=== PATIENT | female | born 1965 | race American Indian/Alaskan Native ===

== ENCOUNTER 2017-05-23 03:17 | Emergency (ER) | payer OTHER ==
[2017-05-23 05:59] VITALS: BP 138/83
--- NOTE | 2017-05-23 07:34 | Emergency Department Report ---
- General Chief Complaint: Skin/Abscess/Foreign Body Stated Complaint: RING STUCK ON FINGER Time Seen by Provider: 05/23/17 07:19 Source: patient Mode of arrival: Ambulatory Limitations: No Limitations - History of Present Illness Initial Comments: 52-year-old female comes in for having a ring stuck on her left ring finger. Patient reports that she was sent here from [place]. Patient reports that she was having hand swelling and the swelling went down but the ring finger due to trauma of trying to pull off her other readings of the same finger cause swelling and not able to remove the last ring. Patient denies any medical history currently takes no medication has multiple allergies to Vicodin hydrocodone oxycodone and tramadol. -: days(s) (1) Extremity Location: Left: Hand (ring finger) Place: other ([place] office) Treatments Prior to Arrival: cold therapy - Related Data Previous Rx's Medication Instructions Recorded Last Taken Type Ibuprofen [Motrin 600 MG tab] 600 mg PO Q8H PRN #30 tablet 05/23/17 Unknown Rx Allergies Allergy/AdvReac Type Severity Reaction Status Date / Time acetaminophen [From Vicodin] Allergy Hives Verified 05/23/17 04:23 hydrocodone Allergy Hives Verified 05/23/17 04:23 oxycodone Allergy Hives Verified 05/23/17 04:23 tramadol Allergy Hives Verified 05/23/17 04:23 ED Review of Systems ROS: Stated complaint: RING STUCK ON FINGER Other details as noted in HPI Constitutional: denies: chills, fever Eyes: denies: eye pain, eye discharge, vision change ENT: denies: ear pain, throat pain Respiratory: denies: cough, shortness of breath, wheezing Cardiovascular: denies: chest pain, palpitations Endocrine: no symptoms reported Gastrointestinal: denies: abdominal pain, nausea, diarrhea Genitourinary: denies: urgency, dysuria, discharge Musculoskeletal: denies: back pain, joint swelling, arthralgia Skin: other (left ring finger swollen and red). denies: rash, lesions Neurological: denies: headache, weakness, paresthesias Psychiatric: denies: anxiety, depression Hematological/Lymphatic: denies: easy bleeding, easy bruising ED Past Medical Hx - Past Medical History Previous Medical History?: No - Surgical History Past Surgical History?: Yes Additional Surgical History: c sec X4 - Social History Smoking Status: Current Every Day Smoker Substance Use Type: None - Medications Home Medications: Home Medications Medication Instructions Recorded Confirmed Last Taken Type Ibuprofen [Motrin 600 MG tab] 600 mg PO Q8H PRN #30 tablet 05/23/17 Unknown Rx ED Physical Exam - General Limitations: No Limitations General appearance: alert, in no apparent distress - Head Head exam: Present: atraumatic, normocephalic - Eye Eye exam: Present: normal appearance - ENT ENT exam: Present: mucous membranes moist - Neck Neck exam: Present: normal inspection - Respiratory Respiratory exam: Absent: respiratory distress - Cardiovascular Cardiovascular Exam: Present: regular rate. Absent: systolic murmur, diastolic murmur, rubs, gallop - Extremities Exam Extremities exam: Present: normal inspection - Expanded Upper Extremity Exam Left Elbow exam: Present: normal inspection, full ROM Forearm Wrist exam: Present: normal inspection, full ROM Hand Wrist exam: Present: full ROM, tenderness (left ring finger), swelling ( left ring finger). Absent: laceration, deformity Neuro motor exam: Present: wrist extension intact, thumb opposition intact, thumb IP flexion intact, thumb adduction intact, fingers 2-5 abduction intact Neurosensory exam: Present: 2-point discrimination, radial nerve intact, ulnar nerve intact, median nerve intact Vascular: Present: normal capillary refill - Back Exam Back exam: Present: normal inspection - Neurological Exam Neurological exam: Present: alert, oriented X3 - Psychiatric Psychiatric exam: Present: normal affect, normal mood - Skin Skin exam: Present: warm, dry, intact, normal color. Absent: rash ED Course Vital Signs 05/23/17 05:59 Temperature 98.1 F Pulse Rate 78 Respiratory 18 Rate Blood Pressure 138/83 [Left] O2 Sat by Pulse 100 Oximetry - Nerve Block Consent Obtained: verbal consent Time Out Performed: Yes Local Anesthetic Used: Lidocaine 1% Amount of anesthesia used: 2 Side: left Nerve Blocks: ulnar, other (ring finger left hand) Procedure Successful: Yes Complications: none Patient Tolerated Procedure: well Additional Comments: Nerve block to left ring finger to remove a ring ED Medical Decision Making - Medical Decision Making Patient's been evaluated by this provider fast track. Nerve block to remove ring from left ring finger. We also use a ring cutter from the OR. Removal was successful patient tolerated procedure well discussed patient to take ibuprofen ice to her finger. Patient verbalized understanding Critical care attestation.: If time is entered above; I have spent that time in minutes in the direct care of this critically ill patient, excluding procedure time. ED Disposition Clinical Impression: Swelling of finger, left Disposition: DC-01 TO HOME OR SELFCARE Is pt being admited?: No Does the pt Need Aspirin: No Condition: Stable Additional Instructions: Please continue to apply ice to your finger, ibuprofen for pain and swelling. Return back to the emergency room finger gets worse. Prescriptions: Ibuprofen [Motrin 600 MG tab] 600 mg PO Q8H PRN #30 tablet PRN Reason: Pain Referrals: MAGDIEL GUILLAUME MD [Primary Care Provider] - 3-5 Days Forms: Work/School Release Form(ED), Accompanied Note
== END 2017-05-23 08:15 | disposition home or self-care (01) ==
LOC: ED 03:17
DX: S60.455A Superficial foreign body of left ring finger, initial encounter (principal); F17.200 Nicotine dependence, unspecified, uncomplicated; Z88.6 Allergy status to analgesic agent; Z88.5 Allergy status to narcotic agent; X58.XXXA Exposure to other specified factors, initial encounter; Y93.89 Activity, other specified; Y99.8 Other external cause status; Y92.89 Other specified places as the place of occurrence of the external cause

== ENCOUNTER 2020-02-08 21:16 | Emergency (ER) | payer MEDICARE, OTHER ==
--- NOTE | 2020-02-09 04:43 | XRay Report ---
LEFT ANKLE 3 VIEWS 0430 INDICATION: Twisted ankle, pain, swelling COMPARISON: None available. FINDINGS: Prominent lateral soft tissue swelling is seen. An oblique fracture of the distal fibular m etaphysis is noted without significant angulation and with only minimal posterior displacement. No ot her fractures are seen. No dislocation is noted. Signer Name: New Decker MD Signed: 02/09/2020 4:38 AM Workstation Name: [id number]
--- NOTE | 2020-02-09 09:20 | Emergency Department Report ---
ED General Adult HPI - General Chief complaint: Extremity Injury, Lower Stated complaint: FELL LEFT ANKLE PAIN/SWELLING Time Seen by Provider: 02/09/20 08:32 Source: patient Mode of arrival: Stretcher Limitations: No Limitations - History of Present Illness Initial comments: 54-year-old -[place] female patient presents with complaints of left an kle pain after a fall injury while at [employer] yesterday. Patient states she slipped on something wet on the ground and twisted her ankle. She rates her pain as a 9/10 in severity and states there is swelling. Also states there is mild tingling in her toes and decreased range of motion. She denies any bruising or color change/lacerations. - Related Data Previous Rx's Medication Instructions Recorded Last Taken Type Ibuprofen [Motrin 600 MG tab] 600 mg PO Q8H PRN #30 tablet 05/23/17 Unknown Rx Diclofenac Sodium 50 mg PO TID PRN #21 tablet. 02/09/20 Unknown Rx Allergies Allergy/AdvReac Type Severity Reaction Status Date / Time acetaminophen [From Vicodin] Allergy Hives Verified 05/23/17 04:23 hydrocodone Allergy Hives Verified 05/23/17 04:23 oxycodone Allergy Hives Verified 05/23/17 04:23 tramadol Allergy Hives Verified 05/23/17 04:23 ED Review of Systems ROS: Stated complaint: FELL LEFT ANKLE PAIN/SWELLING Other details as noted in HPI Constitutional: denies: malaise Musculoskeletal: joint swelling, arthralgia Skin: denies: change in color Neurological: paresthesias. denies: numbness Hematological/Lymphatic: denies: easy bruising ED Past Medical Hx - Past Medical History Previous Medical History?: Yes Additional medical history: Chronic Neck and back pain. - Surgical History Past Surgical History?: Yes Additional Surgical History: c sec X4 - Social History Smoking Status: Current Every Day Smoker Substance Use Type: None - Medications Home Medications: Home Medications Medication Instructions Recorded Confirmed Last Taken Type Ibuprofen [Motrin 600 MG tab] 600 mg PO Q8H PRN #30 tablet 05/23/17 Unknown Rx Diclofenac Sodium 50 mg PO TID PRN #21 tablet. 02/09/20 Unknown Rx ED Physical Exam - General Limitations: No Limitations General appearance: alert, in no apparent distress - Head Head exam: Present: atraumatic, normocephalic - Eye Eye exam: Present: normal appearance. Absent: scleral icterus - Neck Neck exam: Present: normal inspection - Respiratory Respiratory exam: Absent: respiratory distress - Cardiovascular Cardiovascular Exam: Present: regular rate - Extremities Exam Extremities exam: Present: normal capillary refill, joint swelling (Left lateral ankle swelling and tenderness to palpation noted without bruising or erythema; pedal pulses normal and there is normal sensation and range of motion of the toes) - Neurological Exam Neurological exam: Present: alert, oriented X3 - Psychiatric Psychiatric exam: Present: normal affect, normal mood - Skin Skin exam: Present: warm, dry, intact, normal color. Absent: rash ED Course Vital Signs 02/09/20 03:44 Temperature 98.2 F Pulse Rate 83 Respiratory 18 Rate Blood Pressure 157/91 O2 Sat by Pulse 99 Oximetry - Procedure Description Procedures done: [place] splint applied; patient tolerated procedure well; normal perfusion and sensation of the toes noted post splint application; pat ient denies any pain or discomfort ED Medical Decision Making - Radiology Data Radiology results: report reviewed LEFT ANKLE 3 VIEWS 0430 INDICATION: Twisted ankle, pain, swelling COMPARISON: None available. FINDINGS: Prominent lateral soft tissue swelling is seen. An oblique fracture of the distal fibular metaphysis is noted without significant angulation and with only minimal posterior displacement. No other fractures are seen. No dislocation is noted. - Medical Decision Making 54-year-old -[place] female patient presents with complaints of left ankle pain after a fall injury while at [employer] yesterday. Patient states she slipped on something wet on the ground and twisted her ankle. She rates her pain as a 9/10 in severity and states there is swelling. Also states there is mild tingling in her toes and decreased range of motion. She denies any bruising or color change/lacerations. Distal fibular fracture noted on x-ray. No signs of compartment syndrome noted on exam. Patient placed in a [place] splint and tolerated procedure well. Her vitals are WNL she is stable for discharge home. Referral given for orthopedics and patient informed to follow-up within 2 days. Strict return precautions were discussed in detail with patient who verbalized understanding. Critical care attestation.: If time is entered above; I have spent that time in minutes in the direct care of this critically ill patient, excluding procedure time. ED Disposition Clinical Impression: Closed fracture of left distal fibula Qualifiers: Encounter type: initial encounter Fracture morphology: other fracture Qualified Code(s): S82.832A - Other fracture of upper and lower end of left fibula, initial encounter for closed fracture Disposition: - TO HOME OR SELFCARE Is pt being admited?: No Condition: Stable Instructions: Tibial and Fibular Fractures, Cast or Splint Care, Adult Prescriptions: Diclofenac Sodium 50 mg PO TID PRN #21 tablet.dr STRAUSS Reason: pain Referrals: [facility] [Provider Group] - 02/10/20
[2020-02-09] MEDS ORDERED: KETOROLAC 60 MG/2 ML INJ IM ONE (09:49)
[2020-02-09] MEDS ORDERED: oxyCODONE /ACETAMINOPHEN 5-325MG TAB PO ONE (09:57)
[2020-02-09] MEDS ORDERED: diphenhydrAMINE 25 MG CAP PO ONE (09:58)
[2020-02-09 12:34] VITALS: BP 124/76
== END 2020-02-09 12:44 | disposition home or self-care (01) ==
LOC: ED 21:16
DX: S82.832A Other fracture of upper and lower end of left fibula, initial encounter for closed fracture (principal); F17.200 Nicotine dependence, unspecified, uncomplicated; Z98.890 Other specified postprocedural states; Z79.899 Other long term (current) drug therapy; Z88.8 Allergy status to other drugs, medicaments and biological substances; W01.0XXA Fall on same level from slipping, tripping and stumbling without subsequent striking against object, initial encounter; Y93.89 Activity, other specified; Y92.89 Other specified places as the place of occurrence of the external cause; Y99.8 Other external cause status
CPT/HCPCS: 29515; 73610; 96372; 99284; J1885